=== PATIENT | female | born 1965 | race Caucasian/White ===

== ENCOUNTER → 2018-06-09 | Outpatient (CLI) | payer MEDICARE ==
[~2018-06-09] MED LIST: ASPIRIN 81M81 MG/TA2 PO; BENADRYL25 M2 PO; IMODIUM 2MG CAPS2 MG PO; POTASSIUM GLUC550 MG PO; PREVACID 15MG15 M1 PO; TENORMIN 2525 MG/TAB PO; ZOCOR 20MG20 MG PO
== END ==
LOC: MC.RAD 13:11
DX: Z12.31 Encounter for screening mammogram for malignant neoplasm of breast (principal)